=== PATIENT | female | born 1955 | race Caucasian/White ===

== ENCOUNTER 2018-03-22 19:03 | Emergency (ER) | payer BC, OTHER ==
--- NOTE | 2018-03-22 19:54 | EDM.PDOC ---
ED HPI GENERAL MEDICAL PROBLEM - General Chief Complaint: Chest Pain Stated Complaint: POSSIBLE HEART ATTACK Time Seen by Provider: 03/22/18 19:22 Source of Information: Reports: Patient, RN Notes Reviewed History Limitations: Reports: No Limitations - History of Present Illness INITIAL COMMENTS - FREE TEXT/NARRATIVE: Patient is a 62 year old female who presents to the ED for the evaluation of sudden onset chest pain. She states that she was eating supper, when she felt this sudden pain in her mid-chest. She states it felt like "someone punched her in the back". At this point she states that she couldn't swallow anything at all. She did not feel as if she had any food stuck in her throat or felt like she was choking. She did have some nausea with this, but has not vomited. She states that she was eating chicken, rice and vegetables. She states the feeling has subsided at the time of the ED visit, but is still lingering. She notes a history of GERD, but denies any other heart issues or lung issues. She does not take any home medications. Back Pain Score (Numeric/FACES): 2 - Related Data Allergies Allergy/AdvReac Type Severity Reaction Status Date / Time aspartame Allergy Unknown Unknown Verified 03/22/18 19:13 cefpodoxime proxetil Allergy Unknown Unknown Verified 03/22/18 19:13 [From Vantin] iodine Allergy Unknown Unknown Verified 03/22/18 19:13 Penicillins Allergy Unknown Unknown Verified 03/22/18 19:13 propoxyphene HCl Allergy Unknown Unknown Verified 03/22/18 19:13 [From Darvon] propoxyphene napsylate Allergy Unknown Unknown Verified 03/22/18 19:13 [From Darvocet-N 100] sorbitol Allergy Unknown Unknown Verified 03/22/18 19:13 CT DYE Allergy Unknown Unknown Uncoded 03/22/18 19:13 Home Meds: Home Meds . [No Known Home Meds] 03/22/18 [History] Past Medical History - Past Health History Medical/Surgical History: Denies Medical/Surgical History Gastrointestinal History: Reports: GERD - Past Surgical History HEENT Surgical History: Reports: Tonsillectomy GI Surgical History: Reports: Appendectomy Female Surgical History: Reports: D&C Endocrine Surgical History: Reports: Parathyroidectomy Musculoskeletal Surgical History: Reports: Carpal Tunnel Social & Family History - Tobacco Use Smoking Status *Q: Never Smoker - Caffeine Use Caffeine Use: Reports: Coffee - Recreational Drug Use Recreational Drug Use: No ED ROS GENERAL - Review of Systems Review Of Systems: See Below Constitutional: Reports: No Symptoms HEENT: Reports: No Symptoms Respiratory: Reports: No Symptoms Cardiovascular: Reports: Chest Pain (mid chest pain) Endocrine: Reports: No Symptoms GI/Abdominal: Reports: Nausea. Denies: Diarrhea, Vomiting : Reports: No Symptoms Musculoskeletal: Reports: No Symptoms Skin: Reports: No Symptoms Neurological: Reports: No Symptoms Psychiatric: Reports: No Symptoms Hematologic/Lymphatic: Reports: No Symptoms Immunologic: Reports: No Symptoms ED EXAM, GENERAL - Physical Exam Exam: See Below Exam Limited By: No Limitations General Appearance: Alert, WD/WN, No Apparent Distress Eye Exam: Bilateral Eye: EOMI Ears: Normal External Exam Nose: Normal Inspection Throat/Mouth: Normal Inspection, Normal Teeth, Normal Gums, Normal Oropharynx, No Airway Compromise Head: Atraumatic, Normocephalic Neck: Normal Inspection, Supple, Non-Tender, Full Range of Motion Respiratory/Chest: No Respiratory Distress, Lungs Clear, Normal Breath Sounds, No Accessory Muscle Use, Chest Non-Tender Cardiovascular: Normal Peripheral Pulses, Regular Rate, Rhythm, No Edema, No JVD , No Murmur GI/Abdominal: Normal Bowel Sounds, Soft, Non-Tender, No Distention Back Exam: Normal Inspection, Full Range of Motion Extremities: Normal Inspection, Normal Capillary Refill Neurological: Alert, Oriented, Normal Cognition, No Motor/Sensory Deficits Psychiatric: Normal Affect, Normal Mood Skin Exam: Warm, Dry, Intact, Normal Color, No Rash EKG INTERPRETATION EKG Date: 03/22/18 Time: 19:10 Rhythm: NSR Rate (Beats/Min): 97 [place]: Normal P-Wave: Present QRS: Normal ST-T: Normal QT: Normal Comparison: NA - No Prior EKG EKG Interpretation Comments: Reviewed with Dr. Reyes. diffuse early repol pattern, decreased voltage in precordial leads, consider left atrial hypertrophy Course - Vital Signs Last Recorded V/S: Last Vital Signs Temp 97.2 F 03/22/18 19:08 Pulse 102 H 03/22/18 19:08 Resp 17 03/22/18 19:08 BP 153/87 H 03/22/18 19:08 Pulse Ox 96 03/22/18 19:08 - Orders/Labs/Meds Orders: Active Orders 24 hr Category Date Time Status EKG Documentation Completion [RC] STAT Care 03/22/18 19:23 Active Chest 2V [CR] Stat Exams 03/22/18 19:23 Ordered Labs: Laboratory Tests 03/22/18 03/22/18 03/22/18 Range/Units 19:10 19:10 19:10 WBC 6.24 (3.98-10.04) K/mm3 RBC 5.21 (3.98-5.22) M/mm3 Hgb 15.6 (11.2-15.7) gm/L Hct 45.8 H (34.1-44.9) % MCV 87.9 (79.4-94.8) fl MCH 29.9 (25.6-32.2) pg MCHC 34.1 (32.2-35.5) g/dl RDW Std Deviation 43.1 (36.4-46.3) fL Plt Count 192 (182-369) K/mm3 MPV 9.7 (9.4-12.3) fl Neutrophils % (Manual) 41 (40-60) % Band Neutrophils % 1 (0-10) % Lymphocytes % (Manual) 54 H (20-40) % Atypical Lymphs % 0 % Monocytes % (Manual) 4 (2-10) % Eosinophils % (Manual) 0 L (0.7-5.8) % Basophils % (Manual) 0 L (0.1-1.2) Platelet Estimate Adequate RBC Morph Comment Normal Sodium 140 (136-145) mEq/L Potassium 3.6 (3.5-5.1) mEq/L Chloride 103 (98-107) mEq/L Carbon Dioxide 25 (21-32) mEq/L Anion Gap 15.6 H (5-15) BUN 17 (7-18) mg/dL Creatinine 0.9 (0.55-1.02) mg/dL Est Cr Clr Drug Dosing 45.96 mL/min Estimated GFR (MDRD) > 60 (>60) mL/min BUN/Creatinine Ratio 18.9 H (14-18) Glucose 149 H (80-115) mg/dL Calcium 9.4 (8.5-10.1) mg/dL Total Bilirubin 1.0 (0.2-1.0) mg/dL AST 22 (15-37) U/L ALT 58 (14-59) U/L Alkaline Phosphatase 95 (46-116) U/L Troponin I < 0.017 (0.00-0.056) ng/mL NT-Pro-B Natriuret Pep 11 (0-125) pg/mL Total Protein 7.7 (6.4-8.2) g/dl Albumin 4.1 (3.4-5.0) g/dl Globulin 3.6 gm/dL Albumin/Globulin Ratio 1.1 (1-2) - Re-Assessments/Exams Free Text/Narrative Re-Assessment/Exam: 03/22/18 19:55 Pt presents to the ED for the evaluation of sudden onset chest pain. I have ordered a cardiac work-up to r/o any type of cardiac involvement, but this is suspicious for an esophageal spasm. Her EKG does not demonstrate any acute abnormalities. 03/22/18 20:44 Labs are back and are essentially WNL. Have made general recommendations to patient regarding reflux medications like omeprazole. Pt understands and agrees. Departure - Departure Time of Disposition: 20:47 Disposition: Home, Self-Care 01 Condition: Fair Clinical Impression: Esophageal spasm Instructions: Esophageal Spasm Referrals: PCP,None [Primary Care Provider] - Forms: ED Department Discharge Additional Instructions: You have been evaluated in the ED for your sudden onset chest pain. Your work-up in the ER tonight shows that you are not having a heart attack. Your pain is most likely due to an esophageal spasm. Recommend taking omeprazole on a daily basis. To start the first week, take 1 pill twice daily, then only take 1 pill once daily after the first 7 days. This is to help reduce the acid levels in your stomach that may be causing some irritation to your esophagus, which might be causing the spasms. Recommend that you set up care with a primary care provider for further management if these problems persist. Please return to the ED if your symptoms change or worsen. - My Orders Last 24 Hours: My Active Orders 03/22/18 19:23 EKG Documentation Completion [RC] STAT Chest 2V [CR] Stat - Assessment/Plan Last 24 Hours: My Active Orders 03/22/18 19:23 EKG Documentation Completion [RC] STAT Chest 2V [CR] Stat
--- NOTE | 2018-03-23 11:34 | CR ---
Chest: Two views of the chest were obtained. Comparison: Prior chest x-ray of 06/08/13. Heart size at the upper limits of normal. Upper mediastinum is normal. Increased central lung markings are seen most likely due to mild pulmonary vascular congestion. Lungs otherwise are clear. Diaphragms are flattened on the lateral view suggesting emphysematous change. Mild degenerative change is scattered within the spine. Surgical clips are seen within the upper abdomen. Impression: 1. Findings suspicious for mild pulmonary vascular congestion. 2. Probable emphysematous change and other incidental findings. Diagnostic code #3
== END 2018-03-22 21:07 | disposition home or self-care (01) ==
LOC: JD.ED 19:03
DX: K22.4 Dyskinesia of esophagus (principal); Z88.8 Allergy status to other drugs, medicaments and biological substances; Z88.0 Allergy status to penicillin
CPT/HCPCS: 36415; 71046; 71046-26; 80053; 83880; 84484; 85007; 85027; 93005; 93010; 99284; 99285-25

== ENCOUNTER 2020-10-07 16:55 | Emergency (ER) | payer MEDICARE, BC ==
[2020-10-07] MEDS ORDERED: Sodium Chloride 0.9% 10 ML Syringe FLUSH PRN (17:28)
--- NOTE | 2020-10-07 18:33 | CR ---
Chest: Portable view of the chest was obtained. Comparison: Prior chest x-ray of 06/08/13. Heart size is somewhat enlarged but accentuated for portable technique. Mediastinum is within normal limits for portable technique. Slight increased perihilar markings are noted possibly due to minimal bronchitis. Lungs otherwise are clear. Bony structures are unremarkable for the patient's age. Impression: 1. Questionable bronchitis. 2. Nothing acute is otherwise seen. Diagnostic code #3
[2020-10-07] MEDS ORDERED: EPINEPHrine 1 MG/ML SDV IM PRN (18:48)
[2020-10-07] MEDS ORDERED: diphenhydrAMINE 50 MG/ML SDV IVPUSH PRN (18:48)
[2020-10-07] MEDS ORDERED: Famotidine 20 MG/2 ML SDV IVPUSH PRN (18:48)
[2020-10-07] MEDS ORDERED: methylPREDNISolone Sodium Succinate 125 MG/2 ML SDV IVPUSH PRN (18:48)
[2020-10-07] MEDS ORDERED: Sodium Chloride 0.9% 10 ML Syringe FLUSH SCH (19:00)
--- NOTE | 2020-10-07 20:17 | EDM.PDOC ---
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 Patient developed symptoms 6 days ago and tested positive for Covid 5 days ago. Patient states she initially had fatigue and generalized body aches. Symptoms have progressed to cough, shortness of breath, nausea, vomiting. She states she has not had diarrhea. She has not had any abdominal pain, fever or chills. She states that every time she attempts to eat she becomes nauseated and then vomits and she suspects that she is dehydrated. Patient states she is otherwise healthy and does not take any prescription medications. She does not smoke. Patient did not have her Covid vaccination. - Related Data Allergies Allergy/AdvReac Type Severity Reaction Status Date / Time aspartame Allergy Unknown Unknown Verified 10/07/20 17:25 cefpodoxime proxetil Allergy Unknown Unknown Verified 10/07/20 17:25 [From Vantin] iodine Allergy Unknown Unknown Verified 10/07/20 17:25 Penicillins Allergy Unknown Unknown Verified 10/07/20 17:25 propoxyphene HCl Allergy Unknown Unknown Verified 10/07/20 17:25 [From Darvon] propoxyphene napsylate Allergy Unknown Unknown Verified 10/07/20 17:25 [From Darvocet-N 100] sorbitol Allergy Unknown Unknown Verified 10/07/20 17:25 CT DYE Allergy Unknown Unknown Uncoded 10/07/20 17:25 Home Meds: Home Meds . [No Known Home Meds] 03/22/18 [History] Past Medical History - Past Health History Medical/Surgical History: Denies Medical/Surgical History Gastrointestinal History: Reports: GERD - Infectious Disease History Infectious Disease History: Reports: Novel Coronavirus - Past Surgical History HEENT Surgical History: Reports: Tonsillectomy GI Surgical History: Reports: Appendectomy Female Surgical History: Reports: D&C Endocrine Surgical History: Reports: Parathyroidectomy Musculoskeletal Surgical History: Reports: Carpal Tunnel Social & Family History - Tobacco Use Tobacco Use Status *Q: Never Tobacco User Second Hand Smoke Exposure: No - Caffeine Use Caffeine Use: Reports: Coffee - Recreational Drug Use Recreational Drug Use: No ED ROS GENERAL - Review of Systems Review Of Systems: Comprehensive ROS is negative, except as noted in HPI. ED EXAM, GENERAL - Physical Exam Exam: See Below Exam Limited By: No Limitations General Appearance: Alert, WD/WN, Mild Distress Ears: Normal External Exam, Hearing Grossly Normal Nose: Normal Inspection Throat/Mouth: Normal Inspection, Normal Lips, Normal Voice, No Airway Compromise Head: Atraumatic Neck: Normal Inspection, Supple Respiratory/Chest: No Respiratory Distress, Normal Breath Sounds, No Accessory Muscle Use, Chest Non-Tender, Crackles (Bilateral bases). No: Lungs Clear Cardiovascular: Normal Peripheral Pulses, Regular Rate, Rhythm, No Edema, No Murmur Peripheral Pulses: 2+: Radial (L), Radial (R) GI/Abdominal: Normal Bowel Sounds, Soft, Non-Tender, No Distention (Female) Exam: Deferred Rectal (Female) Exam: Deferred Back Exam: Normal Inspection Extremities: Normal Inspection Neurological: Alert, Oriented, Normal Cognition Psychiatric: Normal Affect, Normal Mood Skin Exam: Warm, Dry, Intact, Normal Color, No Rash Lymphatic: No Adenopathy Course - Vital Signs Text/Narrative:: As stated above, 65-year-old female who presents with worsening Covid symptoms. She feels as though she is dehydrated. Physical exam reveals crackles noted to bilateral lungs. She does complain of nausea. She does not have any abdominal pain at this time. At time of my assessment her O2 saturations are 94% on room air. I have ordered labs to include a CBC, CMP, magnesium, C-reactive protein and a D-dimer. We will also obtain a portable chest x-ray. I suspect the patient will be a candidate for Regeneron therapy. I did discuss Regeneron therapy with the patient at the time of my initial exam. Last Recorded V/S: Last Vital Signs Temp 98.9 F 10/07/20 19:05 Pulse 86 10/07/20 21:00 Resp 16 10/07/20 21:00 BP 136/86 10/07/20 21:00 Pulse Ox 94 L 10/07/20 21:00 - Orders/Labs/Meds Orders: Active Orders 24 hr Category Date Time Status Vital Signs [RC] Q15M Care 10/07/20 18:48 Active CULTURE URINE [MREF] Stat Lab 10/07/20 18:33 Received EPINEPHrine [Adrenalin] Med 10/07/20 18:48 Active 0.3 mg IM ONETIME PRN Famotidine [Pepcid] Med 10/07/20 18:48 Active 20 mg IVPUSH ONETIME PRN Sodium Chloride 0.9% [Saline Flush] Med 10/07/20 17:28 Active 10 ml FLUSH ASDIRECTED PRN Sodium Chloride 0.9% [Saline Flush] Med 10/07/20 19:00 Active 30 ml FLUSH ASDIRECTED diphenhydrAMINE [Benadryl] Med 10/07/20 18:48 Active 50 mg IVPUSH ONETIME PRN methylPREDNISolone Sod Succ [Solu-MEDROL] Med 10/07/20 18:48 Active 125 mg IVPUSH ONETIME PRN Saline Lock Insert [OM.PC] Stat Oth 10/07/20 17:28 Ordered Medication Orders Diphenhydramine HCl (Diphenhydramine 50 Mg/Ml Sdv) 50 mg IVPUSH ONETIME PRN PRN Reason: hypersensitivity reaction Epinephrine HCl (Epinephrine 1 Mg/Ml Sdv) 0.3 mg IM ONETIME PRN PRN Reason: hypersensitivity reaction Famotidine (Famotidine 20 Mg/2 Ml Sdv) 20 mg IVPUSH ONETIME PRN PRN Reason: hypersensitivity reaction Methylprednisolone Sodium Succinate (Methylprednisolone Sodium Succinate 125 Mg/2 Ml Sdv) 125 mg IVPUSH ONETIME PRN PRN Reason: hypersensitivity reaction Sodium Chloride (Sodium Chloride 0.9% 10 Ml Syringe) 10 ml FLUSH ASDIRECTED PRN PRN Reason: Keep Vein Open Last Admin: 10/07/20 17:46 Dose: 10 ml Documented by: ERON Sodium Chloride (Sodium Chloride 0.9% 10 Ml Syringe) 30 ml FLUSH ASDIRECTED [facility] Labs: Laboratory Tests 10/07/20 10/07/20 10/07/20 Range/Units 17:42 17:42 17:42 WBC 3.48 L (3.98-10.04) K/mm3 RBC 4.84 (3.98-5.22) M/mm3 Hgb 14.7 (11.2-15.7) gm/dl Hct 42.5 (34.1-44.9) % MCV 87.8 (79.4-94.8) fl MCH 30.4 (25.6-32.2) pg MCHC 34.6 (32.2-35.5) g/dl RDW Std Deviation 41.9 (36.4-46.3) fL Plt Count 121 L (182-369) K/mm3 MPV 10.2 (9.4-12.3) fl Neut % (Auto) 74.1 H (34.0-71.1) % Lymph % (Auto) 16.4 L (19.3-51.7) % [place] % (Auto) 9.2 (4.7-12.5) % Eos % (Auto) 0 L (0.7-5.8) Baso % (Auto) 0.0 L (0.1-1.2) % Neut # (Auto) 2.58 (1.56-6.13) K/mm3 Lymph # (Auto) 0.57 L (1.18-3.74) K/mm3 [place] # (Auto) 0.32 (0.24-0.36) K/mm3 Eos # (Auto) 0.00 L (0.04-0.36) K/mm3 Baso # (Auto) 0.00 L (0.01-0.08) K/mm3 D-Dimer, Quantitative 0.96 H (0.19-0.50) mg/L Sodium 137 (136-145) mEq/L Potassium 3.2 L (3.5-5.1) mEq/L Chloride 101 (98-107) mEq/L Carbon Dioxide 26 (21-32) mEq/L Anion Gap 13.2 (5-15) BUN 10 (7-18) mg/dL Creatinine 0.7 (0.55-1.02) mg/dL Est Cr Clr Drug Dosing 56.78 mL/min Estimated GFR (MDRD) > 60 (>60) mL/min BUN/Creatinine Ratio 14.3 (14-18) Glucose 127 H (70-99) mg/dL Calcium 7.7 L D (8.5-10.1) mg/dL Magnesium 1.9 (1.8-2.4) mg/dL Total Bilirubin 0.8 (0.2-1.0) mg/dL AST 43 H (15-37) U/L ALT 70 H (14-59) U/L Alkaline Phosphatase 62 (46-116) U/L C-Reactive Protein 3.9 H* (<1.0) mg/dL Total Protein 6.7 (6.4-8.2) g/dl Albumin 3.4 (3.4-5.0) g/dl Globulin 3.3 gm/dL Albumin/Globulin Ratio 1.0 (1-2) Urine Color (Yellow) Urine Appearance (Clear) Urine pH (5.0-8.0) Ur Specific [place] (1.005-1.030) Urine Protein (Negative) Urine Glucose (UA) (Negative) Urine Ketones (Negative) Urine Occult Blood (Negative) Urine Nitrite (Negative) Urine Bilirubin (Negative) Urine Urobilinogen (0.2-1.0) Ur Leukocyte Esterase (Negative) Urine RBC (0-5) /hpf Urine WBC (0-5) /hpf Ur Squamous Epith Cells (0-5) /hpf Urine Bacteria (FEW) /hpf Urine Mucus (FEW) /hpf // Range/Units 18:33 WBC (3.98-10.04) K/mm3 RBC (3.98-5.22) M/mm3 Hgb (11.2-15.7) gm/dl Hct (34.1-44.9) % MCV (79.4-94.8) fl MCH (25.6-32.2) pg MCHC (32.2-35.5) g/dl RDW Std Deviation (36.4-46.3) fL Plt Count (182-369) K/mm3 MPV (9.4-12.3) fl Neut % (Auto) (34.0-71.1) % Lymph % (Auto) (19.3-51.7) % [place] % (Auto) (4.7-12.5) % Eos % (Auto) (0.7-5.8) Baso % (Auto) (0.1-1.2) % Neut # (Auto) (1.56-6.13) K/mm3 Lymph # (Auto) (1.18-3.74) K/mm3 [place] # (Auto) (0.24-0.36) K/mm3 Eos # (Auto) (0.04-0.36) K/mm3 Baso # (Auto) (0.01-0.08) K/mm3 D-Dimer, Quantitative (0.19-0.50) mg/L Sodium (136-145) mEq/L Potassium (3.5-5.1) mEq/L Chloride (98-107) mEq/L Carbon Dioxide (21-32) mEq/L Anion Gap (5-15) BUN (7-18) mg/dL Creatinine (0.55-1.02) mg/dL Est Cr Clr Drug Dosing mL/min Estimated GFR (MDRD) (>60) mL/min BUN/Creatinine Ratio (14-18) Glucose (70-99) mg/dL Calcium (8.5-10.1) mg/dL Magnesium (1.8-2.4) mg/dL Total Bilirubin (0.2-1.0) mg/dL AST (15-37) U/L ALT (14-59) U/L Alkaline Phosphatase (46-116) U/L C-Reactive Protein (<1.0) mg/dL Total Protein (6.4-8.2) g/dl Albumin (3.4-5.0) g/dl Globulin gm/dL Albumin/Globulin Ratio (1-2) Urine Color Yellow (Yellow) Urine Appearance Slt cloudy H (Clear) Urine pH 6.5 (5.0-8.0) Ur Specific [place] 1.020 (1.005-1.030) Urine Protein 1+ H (Negative) Urine Glucose (UA) Negative (Negative) Urine Ketones Negative (Negative) Urine Occult Blood Negative (Negative) Urine Nitrite Negative (Negative) Urine Bilirubin Negative (Negative) Urine Urobilinogen 0.2 (0.2-1.0) Ur Leukocyte Esterase 1+ H (Negative) Urine RBC 0-5 (0-5) /hpf Urine WBC 0-5 (0-5) /hpf Ur Squamous Epith Cells 0-5 (0-5) /hpf Urine Bacteria Moderate H (FEW) /hpf Urine Mucus Rare (FEW) /hpf Meds: Medications Generic Name Dose Route Start Last Admin Trade Name Freq PRN Reason Stop Dose Admin Diphenhydramine HCl 50 mg 10/07/20 18:48 Diphenhydramine 50 Mg/Ml Sdv IVPUSH ONETIME PRN hypersensitivity reaction Epinephrine HCl 0.3 mg 10/07/20 18:48 Epinephrine 1 Mg/Ml Sdv IM ONETIME PRN hypersensitivity reaction Famotidine 20 mg 10/07/20 18:48 Famotidine 20 Mg/2 Ml Sdv IVPUSH ONETIME PRN hypersensitivity reaction Methylprednisolone Sodium Succinate 125 mg 10/07/20 18:48 Methylprednisolone Sodium Succinate 125 Mg/2 Ml Sdv IVPUSH ONETIME PRN hypersensitivity reaction Sodium Chloride 10 ml 10/07/20 17:28 10/07/20 17:46 Sodium Chloride 0.9% 10 Ml Syringe FLUSH 10 ml ASDIRECTED PRN Administration Keep Vein Open Sodium Chloride 30 ml 10/07/20 19:00 Sodium Chloride 0.9% 10 Ml Syringe FLUSH ASDIRECTED ERNESTINA Discontinued Medications Generic Name Dose Route Start Last Admin Trade Name Freq PRN Reason Stop Dose Admin CASIRIVIMAB/IMDEVIMAB 10 ml/ 110 mls @ 220 mls/hr 10/07/20 18:48 10/07/20 20:08 Sodium Chloride IV 10/07/20 19:17 220 mls/hr ONETIME ONE Administration - Re-Assessments/Exams Free Text/Narrative Re-Assessment/Exam: 10/07/20 18:00 Hematology reveals a WBC of 3.48, hemoglobin 14.7, hematocrit 42.5, platelet count 121 D-dimer 0.96. This elevation is corresponding to cause it and I do not suspect that she would have a blood clot. Chemistry reveals a sodium of 137, potassium 3.2, anion gap 13.2, BUN 10, creatinine 0.7, glucose 127, calcium 7.7, magnesium 1.9, total bilirubin 0.8, AST 43, ALT 70, alk phos 62, C-reactive protein 3.9 Urinalysis reveals 1+ protein, nitrite negative, 1+ leukocyte Estrace, 0-5 urine WBC moderate bacteria 10/07/20 18:48 10/07/20 18:42 Radiologist impression portable view of the chest:. 1. Questionable right bronchitis. 2. Nothing acute is otherwise seen. I spoke with the patient to provide information about Regeneron treatment for herself. I offered her the patient and caregiver [employer] Regeneron fax sheet to read and review. I stated the drug has been approved by an emergency use authorization process and has not been fully FDA approved or reviewed. The patient meets the EUA requirements. I discussed there are other potential treatment options that are currently not FDA approved to treat COVID-19. Offere d opportunity to ask questions and all questions were answered. The patient voiced understanding and agreed to proceed with the treatment for herself. 10/07/20 21:39 Patient did receive Regeneron and was monitored for an hour after. She tolerated the infusion well. She will be discharged home with a prescription for Zofran ODT. Departure - Departure Time of Disposition: 21:39 Disposition: Home, Self-Care 01 Condition: Good Clinical Impression: COVID-19 - Discharge Information Referrals: PCP,None [Primary Care Provider] - Forms: ED Department Discharge Additional Instructions: You were seen in the emergency department today with worsening Covid symptoms. Your oxygen level was at 94% so you did not require hospitalization. However, you did fit the criteria to receive monoclonal antibody treatment. This was given to you today in the emergency department. You should start to feel better over the course of the next couple of days. Go home, rest, drink plenty of fluids. Take Tylenol or ibuprofen for fever or body aches. I have given you a prescription for a medication called Zofran ODT. This medication is used to treat nausea and/or vomiting. You may take [address] it under your tongue and allow it as a dissolve. Please wait 30 minutes prior to eating or drinking to allow the medication plenty of time to work. Should your condition worsen or change, do not hesitate returning to the emergency department. Sepsis Event Note (ED) - Evaluation Sepsis Screening Result: No Definite Risk - Focused Exam Vital Signs: Vital Signs Temp Pulse Resp BP Pulse Ox 10/07/20 21:00 86 16 136/86 94 L 10/07/20 20:40 86 16 93 L 10/07/20 20:30 87 18 135/79 93 L 10/07/20 20:15 90 20 126/102 H 93 L 10/07/20 19:05 98.9 F 91 20 126/102 H 95 10/07/20 17:15 97 F 98 18 136/75 92 L - My Orders Last 24 Hours: My Active Orders 10/07/20 17:28 Sodium Chloride 0.9% [Saline Flush] 10 ml FLUSH ASDIRECTED PRN Saline Lock Insert [OM.PC] Stat 10/07/20 18:33 CULTURE URINE [MREF] Stat 10/07/20 18:48 Vital Signs [RC] Q15M EPINEPHrine [Adrenalin] 0.3 mg IM ONETIME PRN Famotidine [Pepcid] 20 mg IVPUSH ONETIME PRN diphenhydrAMINE [Benadryl] 50 mg IVPUSH ONETIME PRN methylPREDNISolone Sod Succ [Solu-MEDROL] 125 mg IVPUSH ONETIME PRN 10/07/20 19:00 Sodium Chloride 0.9% [Saline Flush] 30 ml FLUSH ASDIRECTED - Assessment/Plan Last 24 Hours: My Active Orders 10/07/20 17:28 Sodium Chloride 0.9% [Saline Flush] 10 ml FLUSH ASDIRECTED PRN Saline Lock Insert [OM.PC] Stat 10/07/20 18:33 CULTURE URINE [MREF] Stat 10/07/20 18:48 Vital Signs [RC] Q15M EPINEPHrine [Adrenalin] 0.3 mg IM ONETIME PRN Famotidine [Pepcid] 20 mg IVPUSH ONETIME PRN diphenhydrAMINE [Benadryl] 50 mg IVPUSH ONETIME PRN methylPREDNISolone Sod Succ [Solu-MEDROL] 125 mg IVPUSH ONETIME PRN 10/07/20 19:00 Sodium Chloride 0.9% [Saline Flush] 30 ml FLUSH ASDIRECTED
== END 2020-10-07 21:55 | disposition home or self-care (01) ==
LOC: JD.ED 16:55
DX: U07.1 COVID-19 (principal); Z88.0 Allergy status to penicillin; Z88.1 Allergy status to other antibiotic agents; Z88.8 Allergy status to other drugs, medicaments and biological substances; Z91.041 Radiographic dye allergy status
CPT/HCPCS: 36415; 71045; 80053; 81001; 83735; 85025; 85379; 86140; 87086; 99284; M0243; Q0243; 99283

== ENCOUNTER 2020-10-13 09:57 | Emergency (ER) | payer MEDICARE, BC ==
[2020-10-13] MEDS ORDERED: Lactated Ringers 1,000 ML IV ONE (10:25)
[2020-10-13] MEDS ORDERED: Ondansetron 4 MG/2 ML SDV IVPUSH ONE (11:11)
--- NOTE | 2020-10-13 12:26 | EDM.PDOC ---
ED HPI GENERAL MEDICAL PROBLEM - General Chief Complaint: Respiratory Problem Stated Complaint: COVID + Time Seen by Provider: 10/13/20 11:00 Source of Information: Reports: Patient, RN Notes Reviewed History Limitations: Reports: No Limitations - History of Present Illness INITIAL COMMENTS - FREE TEXT/NARRATIVE: Patient is a 65-year-old female presenting to the emergency department with complaints of dry heaves. She is Covid positive diagnosed on Sunday of last week. Ports that she has had cough but no significant shortness of breath. She has had intermittent vomiting and diarrhea since diagnosis, however last evening she developed dry heaving and was unable to keep liquids down. She denies any chest pain. She received Regeneron treatment 1 week ago. Reports low-grade fevers at home. Arrival to ER, temperature was found to be elevated at 99.4 temporally, pulse 95, blood pressure 168/99, respiratory rate 18, oxygen 94% on room air. - Related Data Allergies Allergy/AdvReac Type Severity Reaction Status Date / Time aspartame Allergy Unknown Unknown Verified 10/13/20 10:10 cefpodoxime proxetil Allergy Unknown Unknown Verified 10/13/20 10:10 [From Vantin] iodine Allergy Unknown Unknown Verified 10/13/20 10:10 Penicillins Allergy Unknown Unknown Verified 10/13/20 10:10 propoxyphene HCl Allergy Unknown Unknown Verified 10/13/20 10:10 [From Darvon] propoxyphene napsylate Allergy Unknown Unknown Verified 10/13/20 10:10 [From Darvocet-N 100] sorbitol Allergy Unknown Unknown Verified 10/13/20 10:10 CT DYE Allergy Unknown Unknown Uncoded 10/07/20 17:25 Home Meds: Home Meds Ondansetron [Zofran ODT] 4 mg PO Q6H PRN #10 tab.dis 10/13/20 [Rx] Sulfamethoxazole/Trimethoprim [Bactrim Ds Tablet] 1 each PO BID 3 Days #6 tablet 10/13/20 [Rx] Past Medical History - Past Health History Medical/Surgical History: Denies Medical/Surgical History Gastrointestinal History: Reports: GERD - Infectious Disease History Infectious Disease History: Reports: Novel Coronavirus - Past Surgical History HEENT Surgical History: Reports: Tonsillectomy GI Surgical History: Reports: Appendectomy Female Surgical History: Reports: D&C Endocrine Surgical History: Reports: Parathyroidectomy Musculoskeletal Surgical History: Reports: Carpal Tunnel Social & Family History - Tobacco Use Tobacco Use Status *Q: Never Tobacco User Second Hand Smoke Exposure: No - Caffeine Use Caffeine Use: Reports: Soda - Recreational Drug Use Recreational Drug Use: No ED ROS GENERAL - Review of Systems Review Of Systems: See Below Constitutional: Reports: Fever, Chills, Fatigue, Decreased Appetite HEENT: Reports: No Symptoms Respiratory: Reports: Cough. Denies: Shortness of Breath, Pleuritic Chest Pain Cardiovascular: Reports: No Symptoms. Denies: Chest Pain Endocrine: Reports: No Symptoms GI/Abdominal: Reports: Diarrhea, Decreased Appetite, Nausea, Vomiting. Denies: Abdominal Pain : Reports: No Symptoms Musculoskeletal: Reports: No Symptoms Skin: Reports: No Symptoms Neurological: Reports: No Symptoms Psychiatric: Reports: No Symptoms Hematologic/Lymphatic: Reports: No Symptoms Immunologic: Reports: No Symptoms ED EXAM, GENERAL - Physical Exam Exam: See Below Exam Limited By: No Limitations General Appearance: Alert, WD/WN, No Apparent Distress Respiratory/Chest: No Respiratory Distress, Lungs Clear, Normal Breath Sounds, No Accessory Muscle Use, Chest Non-Tender Cardiovascular: Normal Peripheral Pulses, Regular Rate, Rhythm, No Edema, No Gallop, No JVD, No Murmur, No Rub GI/Abdominal: Normal Bowel Sounds, Soft, Non-Tender, No Organomegaly, No Distention, No Abnormal Bruit, No Mass Neurological: Alert, Oriented, CN II-XII Intact, Normal Cognition, Normal Gait, Normal Reflexes, No Motor/Sensory Deficits Psychiatric: Normal Affect, Normal Mood Skin Exam: Warm, Dry, Intact, Normal Color, No Rash Course - Vital Signs Last Recorded V/S: Last Vital Signs Temp 99.4 F 10/13/20 10:07 Pulse 95 10/13/20 10:07 Resp 18 10/13/20 10:07 BP 168/99 H 10/13/20 10:07 Pulse Ox 94 L 10/13/20 10:07 - Orders/Labs/Meds Labs: Laboratory Tests 10/13/20 10/13/20 10/13/20 Range/Units 10:10 10:10 10:10 WBC 7.39 (3.98-10.04) K/mm3 RBC 5.00 (3.98-5.22) M/mm3 Hgb 14.7 (11.2-15.7) gm/dl Hct 43.2 (34.1-44.9) % MCV 86.4 (79.4-94.8) fl MCH 29.4 (25.6-32.2) pg MCHC 34.0 (32.2-35.5) g/dl RDW Std Deviation 40.0 (36.4-46.3) fL Plt Count 221 D (182-369) K/mm3 MPV 9.7 (9.4-12.3) fl Neut % (Auto) 77.4 H (34.0-71.1) % Lymph % (Auto) 10.3 L (19.3-51.7) % [place] % (Auto) 10.7 (4.7-12.5) % Eos % (Auto) 0.4 L (0.7-5.8) Baso % (Auto) 0.1 (0.1-1.2) % Neut # (Auto) 5.72 (1.56-6.13) K/mm3 Lymph # (Auto) 0.76 L (1.18-3.74) K/mm3 [place] # (Auto) 0.79 H (0.24-0.36) K/mm3 Eos # (Auto) 0.03 L (0.04-0.36) K/mm3 Baso # (Auto) 0.01 (0.01-0.08) K/mm3 Sodium 141 (136-145) mEq/L Potassium 3.4 L (3.5-5.1) mEq/L Chloride 104 (98-107) mEq/L Carbon Dioxide 26 (21-32) mEq/L Anion Gap 14.4 (5-15) BUN 8 (7-18) mg/dL Creatinine 0.6 (0.55-1.02) mg/dL Est Cr Clr Drug Dosing 66.25 mL/min Estimated GFR (MDRD) > 60 (>60) mL/min BUN/Creatinine Ratio 13.3 L (14-18) Glucose 115 H (70-99) mg/dL Calcium 8.3 L (8.5-10.1) mg/dL Total Bilirubin 1.2 H (0.2-1.0) mg/dL AST 32 (15-37) U/L ALT 52 (14-59) U/L Alkaline Phosphatase 83 (46-116) U/L Total Protein 7.2 (6.4-8.2) g/dl Albumin 3.3 L (3.4-5.0) g/dl Globulin 3.9 gm/dL Albumin/Globulin Ratio 0.9 L (1-2) Lipase 201 (73-393) U/L Urine Color Yellow (Yellow) Urine Appearance Clear (Clear) Urine pH 7.5 (5.0-8.0) Ur Specific [place] 1.020 (1.005-1.030) Urine Protein Trace H (Negative) Urine Glucose (UA) Negative (Negative) Urine Ketones Negative (Negative) Urine Occult Blood Negative (Negative) Urine Nitrite Negative (Negative) Urine Bilirubin Negative (Negative) Urine Urobilinogen 2.0 H (0.2-1.0) Ur Leukocyte Esterase 1+ H (Negative) Urine RBC 0-5 (0-5) /hpf Urine WBC 5-10 H (0-5) /hpf Ur Squamous Epith Cells 0-5 (0-5) /hpf Urine Bacteria Few (FEW) /hpf Urine Mucus Rare (FEW) /hpf Meds: Medications Discontinued Medications Generic Name Dose Route Start Last Admin Trade Name Freq PRN Reason Stop Dose Admin Lactated Ringer's 1,000 mls @ 999 mls/hr 10/13/20 10:25 10/13/20 10:37 Ringers, Lactated IV 10/13/20 11:25 999 mls/hr .BOLUS ONE Administration Ondansetron HCl 4 mg 10/13/20 11:11 10/13/20 11:16 Ondansetron 4 Mg/2 Ml Sdv IVPUSH 10/13/20 11:12 4 mg ONETIME ONE Administration - Re-Assessments/Exams Free Text/Narrative Re-Assessment/Exam: Standing orders were placed for blood work and urinalysis prior to me seeing the patient. Hematology is grossly unremarkable. Urinalysis shows 1+ leukocyte esterase and 5-10 WBCs. Patient reports that she feels somewhat better after IV fluids. I have ordered Zofran 4 mg IV to be given. We will then have her attempt oral fluids. I have also ordered chest x-ray. 10/13/20 13:22 Chest x-ray shows bilateral Covid pneumonia. Patient's oxygen saturations have maintained 93 to 94% on room air. She is feeling much better after the Zofran and would like to go home. I will treat her for urinary tract infection with Bactrim DS. I also sent prescription for Zofran. We will send her home with a pulse oximeter to monitor her oxygen saturations at home. Discussed return precautions. Discharge instructions as documented. Departure - Departure Time of Disposition: 13:23 Disposition: Home, Self-Care 01 Condition: Good Clinical Impression: COVID-19, Pneumonia Urinary tract infection Qualifiers: Urinary tract infection type: acute cystitis Hematuria presence: without hematuria Qualified Code(s): N30.00 - Acute cystitis without hematuria - Discharge Information *PRESCRIPTION DRUG MONITORING PROGRAM REVIEWED*: No *COPY OF PRESCRIPTION DRUG MONITORING REPORT IN PATIENT DEREK: No Prescriptions: Sulfamethoxazole/Trimethoprim [Bactrim Ds Tablet] 1 each PO BID 3 Days #6 tablet Ondansetron [Zofran ODT] 4 mg PO Q6H PRN #10 tab.dis PRN Reason: Nausea/Vomiting Instructions: COVID-19, Urinary Tract Infection, Adult, [id number] Referrals: Dar Sousa MD [Primary Care Provider] - Forms: ED Department Discharge Additional Instructions: You were seen in the emergency department today for nausea, vomiting, dry heaving, associated with COVID-19. Work-up included blood work, urinalysis, and chest x-ray. Results your work-up show that you have urinary tract infection. You also have Covid pneumonia which is a viral pneumonia. While in the ER, you received IV fluids and Zofran which did improve your symptoms. Prescription has been sent for Bactrim which is an antibiotic to treat urinary tract infection as well as Zofran for nausea. Take these medications as prescribed. Recommend checking your oxygen saturation intermittently throughout the day. You are maintaining oxygen saturation less than 90%, you should be reevaluated. Return to ER as needed for new or worsening symptoms of concern.
--- NOTE | 2020-10-13 13:46 | CR ---
Chest: Portable view of the chest was obtained. Comparison: Prior chest x-ray of 10/07/20. Diffuse increased density is seen throughout both sides of the chest, worse within the right lung base. Findings are compatible with prominent COVID pneumonia. Heart is enlarged. Upper mediastinum is within normal limits. Bony structures show nothing acute. Surgical clips are seen within the upper mediastinum. Impression: 1. Significantly worsening of COVID pneumonia within both lungs. 2. Other stable findings as noted above. Diagnostic code #3
== END 2020-10-13 13:44 | disposition home or self-care (01) ==
LOC: JD.ED 09:57
DX: U07.1 COVID-19 (principal); J12.82 Pneumonia due to coronavirus disease 2019; N30.00 Acute cystitis without hematuria; Z91.02 Food additives allergy status; Z88.1 Allergy status to other antibiotic agents; Z86.16 Personal history of COVID-19; Z91.041 Radiographic dye allergy status; Z88.0 Allergy status to penicillin
CPT/HCPCS: 36415; 71045; 80053; 81001; 83690; 85025; 96374; 99284; J2405; J7120

== ENCOUNTER 2021-06-07 20:44 | Emergency (ER) | payer MEDICARE, BC | END 2021-06-07 23:43 | disposition home or self-care (01) | LOC: JD.ED 20:44 | DX: M26.601 Right temporomandibular joint disorder, unspecified (principal); R03.0 Elevated blood-pressure reading, without diagnosis of hypertension; Z88.0 Allergy status to penicillin; Z91.041 Radiographic dye allergy status; Z88.8 Allergy status to other drugs, medicaments and biological substances; Z86.16 Personal history of COVID-19 | CPT/HCPCS: 36415; 71045; 71045-26; 80053; 84484; 85025; 85610; 93005; 99283; 99284-25 ==

== ENCOUNTER 2021-08-25 10:36 | Emergency (ER) | payer MEDICARE, BC ==
[2021-08-25] MEDS ORDERED: Sodium Chloride 0.9% 10 ML Syringe FLUSH PRN (11:06)
[2021-08-25] MEDS ORDERED: Sodium Chloride 0.9% 1,000 ML IV STA (11:38)
[2021-08-25] MEDS ORDERED: Ondansetron 4 MG/2 ML SDV IVPUSH ONE (11:38)
[2021-08-25 12:14] LABS: CORONAVIRUS COVID-19 NAA POSITIVE (NEGATIVE)
== END 2021-08-25 13:50 | disposition home or self-care (01) ==
LOC: JD.ED 10:36
DX: U07.1 COVID-19 (principal); Z88.8 Allergy status to other drugs, medicaments and biological substances; Z88.1 Allergy status to other antibiotic agents; Z88.0 Allergy status to penicillin; Z91.041 Radiographic dye allergy status; Z79.899 Other long term (current) drug therapy; Z86.16 Personal history of COVID-19; Z90.49 Acquired absence of other specified parts of digestive tract
CPT/HCPCS: 0240U; 36415; 71045; 80053; 81001; 83690; 85025; 86140; 87086; 96361; 96374; 99284; J2405; J3490; J7030